=== PATIENT | male | born 1995 | race Caucasian/White ===

== ENCOUNTER 2017-03-21 17:31 | Emergency (ER) | payer SELFPAY ==
[2017-03-21 17:55] VITALS: RESP 18; O2SAT 100
[2017-03-21 19:14] LABS: BASO # 0.1 K/uL (0.0-0.2); BASO % 0.8 % (0.0-2.0); EOS % 0.5 % (0.0-4.0); HEMATOCRIT 41.1 % (35.0-51.0); LYMPH # 2.9 K/uL (1.0-4.3); LYMPH % 30.1 % (20.0-40.0); MEAN CELL VOLUME 84.9 fL (80.0-94.0); MEAN CORPUSCULAR HEMOGLOBIN 28.7 pg (27.0-31.0); MEAN CORPUSCULAR HGB CONC 33.8 g/dL (33.0-37.0); MEAN PLATELET VOLUME 9.1 fL (7.2-11.7); MONO # 0.9 K/uL (0.0-0.8); MONO % 9.2 % (0.0-10.0); RED CELL DISTRIBUTION WIDTH 16.1 % (11.5-14.5); WHITE BLOOD COUNT 9.7 K/uL (4.8-10.8)
[2017-03-21 19:16] LABS: RBC URINE < 1 /hpf (0-3); URINE BILIRUBIN NEGATIVE (NEGATIVE); URINE BLOOD NEGATIVE (NEGATIVE); URINE COLOR Yellow (YELLOW); URINE GLUCOSE (UA) NORMAL (Normal); URINE KETONE NEGATIVE (NEGATIVE); URINE LEUKOCYTE ESTERASE NEG Leu/uL (Negative); URINE PROTEIN NEGATIVE (NEGATIVE); URINE UROBILINOGEN NORMAL mg/dL (0.2-1.0)
[2017-03-21 19:27] LABS: CHLORIDE 98 mmol/L (98-107)
[2017-03-21 19:28] LABS: POTASSIUM 3.6 mmol/L (3.6-5.2); SODIUM 140 mmol/L (132-148)
[2017-03-21 19:30] LABS: ALB/GLOB RATIO 1.5 (1.0-2.1); ALKALINE PHOSPHATASE 102 U/L (38-126); AST/SGOT 26 U/L (17-59); BILIRUBIN,TOTAL 1.3 mg/dL (0.2-1.3); BLOOD UREA NITROGEN 13 mg/dL (9-20); CARBON DIOXIDE 25 mmol/L (22-30); GFR AFRICAN-AMERICAN > 60; TOTAL PROTEIN 7.7 g/dL (6.3-8.3)
[2017-03-21 19:31] LABS: ALT/SGPT 36 U/L (21-72); CALCIUM 8.9 mg/dl (8.6-10.4); GLUCOSE,RANDOM 84 mg/dL (75-110)
--- NOTE | 2017-03-21 19:49 | C.PDOC ---
History Of Present Illness 22 year old male presents to the ED with complaints of right testicular pain, suprapubic pain, and bilateral ear fullness sensation for three days. Patient denies fever, dysuria, vomiting, diarrhea, penile discharge, falls, injuries, or concern for STDs. Time Seen by Provider: 03/21/17 18:23 Chief Complaint (Nursing): Male Genitourinary History Per: Patient History/Exam Limitations: no limitations Onset/Duration Of Symptoms: Days (3 days ) Current Symptoms Are (Timing): Still Present Quality Of Discomfort: "Pain" Associated Symptoms: denies: Fever, Chills, Nausea, Vomiting, Diarrhea Alleviating Factors: None Recent travel outside of the [place]: No Past Medical History Reviewed: Historical Data, Nursing Documentation, Vital Signs Vital Signs: Last Vital Signs Temp 98.1 F 03/21/17 20:21 Pulse 76 03/21/17 20:21 Resp 18 03/21/17 20:21 BP 107/72 03/21/17 20:21 Pulse Ox 100 03/21/17 20:37 Surgical History: Appendectomy Family History: States: Unknown Family Hx - Social History Hx Alcohol Use: No Hx Substance Use: Yes Review Of Systems Constitutional: Negative for: Fever, Chills ENT: Positive for: Other (bilateral ear fullness ) Cardiovascular: Negative for: Chest Pain, Palpitations Respiratory: Negative for: Cough, Shortness of Breath Gastrointestinal: Positive for: Abdominal Pain (suprapubic ). Negative for: Nausea, Vomiting Genitourinary: Positive for: Other (right testicular pain ). Negative for: Dysuria Skin: Negative for: Rash Physical Exam - Physical Exam Appears: Non-toxic, No Acute Distress, Other (Patient appears comfortable ) Skin: Warm, Dry Head: Atraumatic, Normacephalic Eye(s): bilateral: Normal Inspection, PERRL, EOMI Ear(s): Bilateral: Normal Oral Mucosa: Moist Neck: Supple Chest: Symmetrical, No Deformity Cardiovascular: Rhythm Regular, No Murmur Respiratory: Normal Breath Sounds, No Rales, No Rhonchi, No Wheezing Gastrointestinal/Abdominal: Soft, Tenderness (mild suprapubic tenderess ), No Distention, No Guarding, No Rebound, Other (Negative McBurney's. Negative Rovsing's sign. ) Male Genital: Testicular Tenderness (right testicular tenderness with palpation ), No Testicular Swelling, Other (no testicular erythema or warmth. penis has no lesions or discharge. ) Extremity: Normal ROM, No Tenderness Neurological/Psych: Oriented x3 ED Course And Treatment - Laboratory Results Result Diagrams: 03/21/17 19:10 03/21/17 19:08 O2 Sat by Pulse Oximetry: 100 (RA) Progress Note: Labs and testicular ultrasound were ordered. US shows orchititis. Patient was given Rochepin, Toradol, and Doryx. Patient was instructed to follow up with urologist in 1-2 days. Disposition Counseled Patient/Family Regarding: Diagnosis, Need For Followup, Rx Given - Disposition Referrals: Jesus Newby MD [Staff Provider] - Disposition: HOME/ ROUTINE Disposition Time: 20:30 Condition: STABLE Additional Instructions: FOLLOW UP WITH UROLOGIST WITHIN 1 WEEK USE ANTIBIOTICS UNTIL FINISHED NO SEX X 10 DAYS RETURN TO ER IF SYMPTOMS WORSEN Prescriptions: Doxycycline Monohydrate 100 mg PO BID #20 tablet Naproxen 375 mg PO BID PRN #30 tablet PRN Reason: pain Instructions: Doxycycline (By mouth), Naproxen (By mouth), Epididymo-orchitis ( ED) Forms: [employer] (Belizean) Print Language: MARTINIQUAIS - Clinical Impression Clinical Impression: Orchitis - Scribe Statement The provider has reviewed the documentation as recorded by the Scribe Maricel Fang All medical record entries made by the Savanaibe were at my direction and personally dictated by me. I have reviewed the chart and agree that the record accurately reflects my personal performance of the history, physical exam, medical decision making, and the department course for this patient. I have also personally directed, reviewed, and agree with the discharge instructions and disposition.
--- NOTE | 2017-03-21 19:51 | US ---
EXAM: US Scrotum EXAM DATE/TIME: Exam ordered 03/21/2017 6:45 PM CLINICAL HISTORY: 22 years old, male; Pain; Scrotum pain; Additional info: Right testicular pain TECHNIQUE: Real-time ultrasound of the scrotum with color Doppler and image documentation. COMPARISON: No relevant prior studies available. FINDINGS: Right testicle: The right testicle measures 4.1 x 1.7 x 2.6 cm. Normal blood flow seen to the right testicle on color Doppler and pulse Doppler examination. No torsion. Left testicle: Left testicle measures 4.2 x 1.6 x 2.7 cm. Normal blood flow seen to the left testicle on color Doppler and pulse were examination. No torsion. Epididymides: The right epididymal head measures 0.8 cm in maximum diameter. The left epididymal head measures 1.2 cm in maximum diameter. Scrotum: A small amount of fluid is noted in the right hemiscrotum. A small amount of fluid is seen in the left hemiscrotum. The amount seen is considered physiologic. Free fluid: There is slightly increased blood flow to the right Teste as compared to the left. No free fluid. Other findings: The echotexture and of the testes is symmetric and homogeneous. IMPRESSION: 1. Mild hyperemia of the right Teste as compared to left. Normal echotexture. This finding suggests orchitis. Hyperemia can also be seen following reduction of a testicular torsion. Clinical correlation suggested.
[2017-03-21] MEDS ORDERED: cefTRIAXone (Rocephin) 250 mg Inj IM STA (20:06)
[2017-03-21] MEDS ORDERED: Naproxen 550 mg Tab PO STA (20:07)
[2017-03-21 20:29] VITALS: BP 107/72; PULSE 76; TEMP 98.1
== END 2017-03-21 20:51 | disposition home or self-care (01) ==
LOC: C.ER 17:31
DX: N45.2 Orchitis (principal)
CPT/HCPCS: 76870; 80053; 81001; 85025; 87086; 87491; 87591; 96372; 96374; 99285; J0696; J1885